=== PATIENT | female | born 1995 | race Caucasian/White ===

== ENCOUNTER 2016-07-27 22:48 | Emergency (ER) | payer OTHER ==
[~2016-07-27] VITALS: Ht 162.6 cm; Wt 47.5 kg
[~2016-07-27 22:48] MED LIST: MACROBID100 MG PO; METHYLPHENIDATE10 M2 PO; MULTI VITAMIN1 EACH PO
[2016-07-27 22:54] VITALS: BP 120/73
[2016-07-27] MEDS ORDERED: AUGMENTIN875 MG PO (22:59)
== END 2016-07-28 00:10 | disposition home or self-care (01) ==
LOC: RME 22:48 → EME 22:48 → RME 07-28 00:10
DX: J02.9 Acute pharyngitis, unspecified (principal); R51 Headache; R68.83 Chills (without fever); H53.8 Other visual disturbances; M79.1 Myalgia
CPT/HCPCS: 99281; 99284